=== PATIENT | male | born 1970 | race Caucasian/White ===

== ENCOUNTER 2019-09-29 16:08 | Observation (INO) | payer SELFPAY ==
[~2019-09-29] VITALS: Ht 170 cm; Wt 114.6 kg
[2019-09-29] VITALS (10 sets, daily range): BP systolic 141–191; BP diastolic 78–102
[~2019-09-29 16:08] MED LIST: ASP325T; BNZ40T
[2019-09-29] MEDS ORDERED: morphine INJ 10 MG/ML 1ML (SYR OR VIAL) IV STA (16:24)
[2019-09-29] MEDS ORDERED: meTOprolol 5 MG/5 ML (LOPRESSOR) VIAL IV ONE (16:30)
[2019-09-29 16:37] LABS: BASOPHILS % (AUTO) 1 % (0-10); EOSINOPHILS # (AUTO) 0.1 10^3/uL (0.0-0.3); EOSINOPHILS % (AUTO) 1 % (0-10); HEMATOCRIT 47 % (40-54); HEMOGLOBIN 17.2 G/DL (13.3-17.7); LYMPHOCYTES # (AUTO) 1.9 X 10^3 (1.0-4.0); LYMPHOCYTES % (AUTO) 25 % (12-44); MEAN CORPUSCULAR HEMOGLOBIN 34 PG (25-34); MEAN CORPUSCULAR HGB CONC 37 G/DL (32-36); MEAN CORPUSCULAR VOLUME 93 FL (80-99); MEAN PLATELET VOLUME 10.8 FL (7.4-10.4); MONOCYTES # (AUTO) 0.8 X 10^3 (0.0-1.0); MONOCYTES % (AUTO) 11 % (0-12); NEUTROPHILS # (AUTO) 4.7 X 10^3 (1.8-7.8); NEUTROPHILS % (AUTO) 63 % (42-75); PLATELET COUNT 160 10^3/uL (130-400); RED CELL DISTRIBUTION WIDTH 12.5 % (10.0-14.5); WHITE BLOOD COUNT 7.5 10^3/uL (4.3-11.0)
--- NOTE | 2019-09-29 16:41 | ED Chest Pain ---
General Chief Complaint: Chest Pain Stated Complaint: HIGH BLOOD PRESSURE History of Present Illness Date Seen by Provider: September 29, 2019 Time Seen by Provider: 16:10 Initial Comments 48-year-old male presents for hypertension. He states since approximately 8:30 this morning his blood pressure is been in the 200s over 120s. He takes Benazapril daily for his blood pressure 20 mg he did take a second dose this morning with no change in his blood pressure. He has been checking it every 30 minutes. He has tried to rest but without resolution of symptoms. He did take aspirin 325 mg, 2 tablets this afternoon. He has a history of CAD and had a heart catheterization in 2009, no stents were placed. He did receive nitroglycerin in 2009 and had significant side effects with burning in his head and significant head pressure. He would prefer not to be given nitroglycerin. His hemoglobin A1c has been borderline elevated but he has not been started on a medication for diabetes. He denies any nausea or vomiting. He has been a little more short of air, than normal for him, and noticing pressure in his left chest. No radiation into his arms or neck. He is diaphoretic and SOA after walking to exam room. He has a family history of coronary artery disease. He denies any recent increased stressors in his life. 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 NTG SL CANOE MAKER: No Associated Symptoms: No abdominal pain, No back pain; diaphoresis; No dizziness, No edema, No fatigue, No fever/chills, No headache, No heartburn, No nausea/vomiting, No rash; shortness of breath; No swelling/lump in chest, No syncope, No weakness Allergies and Home Medications Allergies Coded Allergies: nitroglycerin (Verified Adverse Reaction, Severe, 09/29/19) Patient Home Medication List Home Medication List Reviewed: Yes Review of Systems Review of Systems Constitutional: no symptoms reported, see HPI Respiratory: See HPI, SOA With Exertion Cardiovascular: See HPI, Chest Pain, Palpitations (hypertension), Other Gastrointestinal: No Symptoms Reported, See HPI; Denies Nausea, Denies Vomiting Psychiatric/Neurological: Denies No Symptoms Reported, Denies See HPI All Other Systems Reviewed Negative Unless Noted: Yes Past Nudofjg-Guajly-Sxtqbd Hx Past Med/Social Hx: Reviewed Nursing Past Med/Soc Hx Patient Social History Alcohol Use: Regular Use Alcohol Beverage of Choice: Beer Recreational Drug Use: No Smoking Status: Current Everyday Smoker Type Used: Cigarettes (one pack a day) 2nd Hand Smoke Exposure: Yes Recent Foreign Travel: No Contact w/Someone Who Travel: No (N) Recent Hopitalizations: No Seasonal Allergies Seasonal Allergies: Yes Past Medical History Surgeries: No Respiratory: No Cardiac: Yes Angina Neurological: No Reproductive Disorders: No Genitourinary: No Gastrointestinal: No Musculoskeletal: No Endocrine: No HEENT: No Cancer: No Psychosocial: No Blood Disorders: No Physical Exam Vital Signs Vital Signs - First Documented Capillary Refill : Height, Weight, BMI Height: '" Weight: lbs. oz. kg; BMI Method:Stated General Appearance: WD/WN, Mild Distress HEENT: PERRL/EOMI, TMs Normal, Normal ENT Inspection, Pharynx Normal, Moist Mucous Membranes Neck: Full Range of Motion, Normal Inspection, Non Tender, Supple Respiratory: Chest Non Tender, Lungs Clear, Normal Breath Sounds Cardiovascular: Regular Rate, Rhythm, No Edema, No Murmur, Normal Peripheral Pulses Gastrointestinal: Normal Bowel Sounds, Non Tender, Soft Neurologic/Psychiatric: Alert, Oriented x3, No Motor/Sensory Deficits, Normal Mood/Affect Skin: Normal Color, Diaphoresis Progress/Results/Core Measures Results/Orders Lab Results Laboratory Tests Test 09/29/19 16:22 Range/Units White Blood Count 7.5 4.3-11.0 10^3/uL Red Blood Count 5.01 4.35-5.85 10^6/uL Hemoglobin 17.2 13.3-17.7 G/DL Hematocrit 47 40-54 % Mean Corpuscular Volume 93 80-99 FL Mean Corpuscular Hemoglobin 34 25-34 PG Mean Corpuscular Hemoglobin Concent 37 H 32-36 G/DL Red Cell Distribution Width 12.5 10.0-14.5 % Platelet Count 160 130-400 10^3/uL Mean Platelet Volume 10.8 H 7.4-10.4 FL Neutrophils (%) (Auto) 63 42-75 % Lymphocytes (%) (Auto) 25 12-44 % Monocytes (%) (Auto) 11 0-12 % Eosinophils (%) (Auto) 1 0-10 % Basophils (%) (Auto) 1 0-10 % Neutrophils # (Auto) 4.7 1.8-7.8 X 10^3 Lymphocytes # (Auto) 1.9 1.0-4.0 X 10^3 Monocytes # (Auto) 0.8 0.0-1.0 X 10^3 Eosinophils # (Auto) 0.1 0.0-0.3 10^3/uL Basophils # (Auto) 0.0 0.0-0.1 10^3/uL Prothrombin Time 14.0 12.2-14.7 SEC INR Comment 1.0 0.8-1.4 Activated Partial Thromboplast Time 28 24-35 SEC Sodium Level 137 135-145 MMOL/L Potassium Level 3.5 L 3.6-5.0 MMOL/L Chloride Level 102 98-107 MMOL/L Carbon Dioxide Level 21 21-32 MMOL/L Anion Gap 14 5-14 MMOL/L Blood Urea Nitrogen 6 L 7-18 MG/DL Creatinine 0.91 0.60-1.30 MG/DL Estimat Glomerular Filtration Rate > 60 BUN/Creatinine Ratio 7 Glucose Level 171 H 70-105 MG/DL Calcium Level 9.9 8.5-10.1 MG/DL Corrected Calcium 8.5-10.1 MG/DL Magnesium Level 1.5 L 1.6-2.4 MG/DL Total Bilirubin 0.8 0.1-1.0 MG/DL Aspartate Amino Transf (AST/SGOT) 104 H 5-34 U/L Alanine Aminotransferase (ALT/SGPT) 84 H 0-55 U/L Alkaline Phosphatase 105 40-136 U/L Myoglobin 48.2 10.0-92.0 NG/ML Troponin I < 0.028 <0.028 NG/ML B-Type Natriuretic Peptide 30.4 <100.0 PG/ML Total Protein 8.2 6.4-8.2 GM/DL Albumin 4.6 H 3.2-4.5 GM/DL My Orders Orders - ALIE BOOKER Cbc With Automated Diff (09/29/19 16:24) Magnesium (09/29/19 16:24) Chest 1 View, Ap/Pa Only (09/29/19 16:24) Ekg Tracing (09/29/19 16:24) Comprehensive Metabolic Panel (09/29/19 16:24) Myoglobin Serum (09/29/19 16:24) Protime With Inr (09/29/19 16:24) Partial Thromboplastin Time (09/29/19 16:24) O2 (09/29/19 16:24) Monitor-Rhythm Ecg Trace Only (09/29/19 16:24) Ed Iv/Invasive Line Start (09/29/19 16:24) BNP (09/29/19 16:24) Troponin I (09/29/19 16:24) Morphine Injection (Morphine Injection (09/29/19 16:24) Metoprolol Tartrate Injection (Lopressor (09/29/19 16:30) Potassium Chloride (Tablet) (Klor Con Ta (09/29/19 17:29) Medications Given in ED Current Medications Medications Dose Ordered Sig/Mounika Route Start Time Stop Time Status Last Admin Dose Admin Metoprolol Tartrate 5 mg ONCE ONCE IV 09/29/19 16:30 09/29/19 16:31 DC 09/29/19 17:11 5 MG Vital Signs/I&O 09/29/19 09/29/19 09/29/19 16:25 16:25 16:55 Temp 37.0 Pulse 108 98 Resp 16 18 B/P (MAP) 234/122 (159) 183/91 (121) Pulse Ox 98 97 O2 Delivery Room Air Room Air Room Air Progress Progress Note : Time: 16:10 Progress Note Patient seen and evaluated, will obtain EKG, chest x-ray, labs. Will give metoprolol 5 mg IV and morphine 2 mg IV. Continue to monitor. 1700 Blood pressure and pulse down slightly: 160/90s HR 80-90 1730 blood pressure in the 140s/80s HR 70-90. Patient reports left chest p ressure improved. He continues to have no nausea or vomiting. [address] Garza, recommended admission for observation. Orders received. Discussed with patient and he is agreeable. [address] Muir, will be admitted to her agreeable to accept patient. 1845 Patient has remained stable with no further chest pressure. No requests. Initial ECG Impression Date: September 29, 2019 Initial ECG Impression Time: 16:22 Initial ECG Rate: 102 Initial ECG Rhythm: S.Tach Initial ECG Intervals: Normal Initial ECG Intervals VT 170, QRSD 116, QT 348, QTC 454. Ralston P 37, QRS -25, T 124. Initial ECG Impression: Normal Diagnostic Imaging Diagonstic Imaging: Xray Plain Films/CT/US/NM/MRI: chest Comments NAME: MONIKA HERNADEZ [employer] REC#: [id number] PT STATUS: REG ER : 1970 PHYSICIAN: ALIE BOOKER ADMIT DATE: 09/29/19/ER Signed Date of Exam:09/29/19 CHEST 1 VIEW, AP/PA ONLY CHEST 1 VIEW, AP/PA ONLY Indication: Hypertension, history of angina Comparison: None available. Findings: No focal airspace disease in the visualized lungs. Please note that the posterior lower lobes are poorly evaluated by portable radiography. No pleural effusion or pneumothorax. Normal cardiomediastinal silhouette. Impression: 1. No acute cardiopulmonary process by portable radiography. Dictated by: Dictated on workstation # [id number] Dict: 09/29/191653 Trans: 09/29/191655 [facility] [id number] Interpreted by: THAO CRAFT MD Electronically signed by: THAO CRAFT MD 09/29/191655 Reviewed: Reviewed by Me Departure Impression Primary Impression: Hypertension Qualified Codes: I10 - Essential (primary) hypertension Additional Impressions: Chest pressure Tobacco abuse Disposition: ADMITTED INPATIENT Condition: Stable Admissions Decision to Admit Reason: Admit from ER (General) Decision to Admit/Date: September 29, 2019 Time/Decision to Admit Time: 17:30 Departure-Patient Inst. Referrals: JIMMY ARIAS MD (PCP) Primary Care Physician LOGAN GARZA MD Copy Copies To 1: JIMMY ARIAS MD, AMY ARNP September 29, 2019 16:41
[2019-09-29 16:51] LABS: ALBUMIN 4.6 GM/DL (3.2-4.5); CHLORIDE 102 MMOL/L (98-107); POTASSIUM 3.5 MMOL/L (3.6-5.0); SODIUM 137 MMOL/L (135-145)
[2019-09-29 16:52] LABS: CALCIUM 9.9 MG/DL (8.5-10.1)
[2019-09-29 16:53] LABS: GLUCOSE 171 MG/DL (70-105)
[2019-09-29 16:54] LABS: TOTAL PROTEIN 8.2 GM/DL (6.4-8.2)
[2019-09-29 16:55] LABS: BILIRUBIN,TOTAL 0.8 MG/DL (0.1-1.0); CARBON DIOXIDE 21 MMOL/L (21-32)
[2019-09-29 16:57] LABS: ALKALINE PHOSPHATASE 105 U/L (40-136); CREATININE SERUM 0.91 MG/DL (0.60-1.30); GFR ESTIMATED > 60
--- NOTE | 2019-09-29 16:57 | Diagnostic Imaging Report ---
CHEST 1 VIEW, AP/PA ONLY Indication: Hypertension, history of angina Comparison: None available. Findings: No focal airspace disease in the visualized lungs. Please note that the posterior lower lobes are poorly evaluated by portable radiography. No pleural effusion or pneumothorax. Normal cardiomediastinal silhouette. Impression: 1. No acute cardiopulmonary process by portable radiography. Dictated by: Dictated on workstation # [id number]
[2019-09-29 16:58] LABS: BUN/CREATININE RATIO 7
[2019-09-29 17:00] LABS: ALANINE AMINOTRANSFERASE 84 U/L (0-55); MAGNESIUM 1.5 MG/DL (1.6-2.4)
[2019-09-29] MEDS ORDERED: KCL 10 MEQ TAB (MICRO K) PO STA (17:29)
--- OUTSIDE RECORDS SUMMARY | 2019-09-29 18:08 | XMS REPORT ---
Author Author Varun ENGLAND Organization [facility] Address Unknown Care Team Providers Care Merchandising Team Lead Name Role Phone SAMANTA RACHEAL Unavailable PROBLEMS Type Condition ICD9-CM Code FBF81-LW Code Onset Dates Condition S tatus SNOMED Code Problem Abdominal pain R10.9 Active 81678 001 Problem HTN (hypertension) I10 Active 3 7210721 Problem Alcohol abuse F10.10 Active 952955 05 Problem Urinary frequency R35.0 Active 16 2925885 ALLERGIES No Known Allergies ENCOUNTERS Encounter Location Date Diagnosis [facility] [address] [facility] [facility] [id number] [place], [place] [id number] Feb, Dental examination Z01.20 [facility] [address] [facility] [id number] [address] [place] [address] Jun, Urinary frequency R35.0 ; Ab dominal pain R10.9 ; HTN (hypertension) I10 and Alcohol abuse F10.10 IMMUNIZATIONS No Known Immunizations SOCIAL HISTORY Never Assessed REASON FOR VISIT ELLA PLAN OF CARE Activity Details Follow Up prn Reason:O&R VITAL SIGNS Height 67 in 2017-02-21 Blood pressure systolic 172 mmHg 2017-02-21 Blood pressure diastolic 96 mmHg 2017-02-21 MEDICATIONS Medication Instructions Dosage Frequency Start Date End Date Duration S tatus Enalapril Maleate 40 mg Orally Once a day 1 tablet 24h Active RESULTS No Results PROCEDURES Procedure Date Ordered Result Body Site LTD ORAL EVALUATION - PROBLEM FOCUS Feb 21, 2017 INTRAORL-PERIAPICAL 1 FILM [id number] Feb 21, 2017 BITEWING - SINGLE FILM Feb 21, 2017 INSTRUCTIONS MEDICATIONS ADMINISTERED No Known Medications MEDICAL (GENERAL) HISTORY Type Description Date Surgical History heart cath Surgical History Nose and throat surgery
--- OUTSIDE RECORDS SUMMARY | 2019-09-29 18:08 | XMS REPORT | Continuity of Care Document ---
Demographics Preferred Language Unknown Marital Status Unknown Alevism Affiliation Unknown Race Unknown Ethnic Group Unknown Author Organization Unknown Address Unknown Phone Unavailable Allergies There is no data. Medications There is no data. Problems There is no data. Procedures There is no data. Results Test Result Range Complete blood count (CBC) with automate d white blood cell (WBC) differential - 09/29/19 16:22 Blood leukocytes automated count (number/volume) 7.5 10*3/uL 4.3-11.0 Blood erythrocytes automated count (number/volume) 5.01 10*6/uL 4.35-5.85 Venous blood hemoglobin measurement (mass/volume) 17.2 g/dL 13.3-17.7 Blood hematocrit (volume fraction) 47 % 40-54 Automated erythrocyte mean corpuscular volume 93 [ foz_us] 80-99 Automated erythrocyte mean corpuscular h emoglobin (mass per erythrocyte) 34 pg 25-34 Automated erythrocyte mean corpuscular h emoglobin concentration measurement (mass/volume) 37 g/dL 32-36 Automated erythrocyte distribution width ratio 12. 5 % 10.0- 14.5 Automated blood platelet count (count/volume) 160 10*3/uL 130-400 Automated blood platelet mean volume measurement 10.8 [foz_us] 7.4-10.4 Automated blood neutrophils/100 leukocytes 63 % 42-75 Automated blood lymphocytes/100 leukocytes 25 % 12-44 Blood monocytes/100 leukocytes 11 % 0-12 Automated blood eosinophils/100 leukocytes 1 % 0-10 Automated blood basophils/100 leukocytes 1 % 0-10 Blood neutrophils automated count (number/volume) 4.7 10*3 1.8-7.8 Blood lymphocytes automated count (number/volume) 1.9 10*3 1.0-4.0 Blood monocytes automated count (number/volume) 0. 8 10*3 0.0-1.0 Automated eosinophil count 0.1 10*3/uL 0 .0-0.3 Automated blood basophil count (count/volume) 0.0 10*3/uL 0.0-0.1 Comprehensive metabolic panel - 09/29/19 16:22 Serum or plasma sodium measurement (moles/volume) 137 mmol/L 135-145 Serum or plasma potassium measurement (moles/volume) 3.5 mmol/L 3.6-5.0 Serum or plasma chloride measurement (moles/volume) 102 mmol/L 98-107 Carbon dioxide 21 mmol/L 21-32 Serum or plasma anion gap determination (moles/volume) 14 mmol/L 5-14 Serum or plasma urea nitrogen measurement (mass/volume ) 6 mg/dL 7-18 Serum or plasma creatinine measurement (mass/volume) 0.91 mg/dL 0.60-1.30 Serum or plasma urea nitrogen/creatinine mass ratio 7 NRG Serum or plasma creatinine measurement w ith calculation of estimated glomerular filtration rate > NRG Serum or plasma glucose measurement (mass/volume) 171 mg/dL 70-105 Serum or plasma calcium measurement (mass/volume) 9.9 mg/dL 8.5-10.1 Serum or plasma total bilirubin measurement (mass/volu me) 0.8 mg/dL 0.1-1.0 Serum or plasma alkaline phosphatase elana surement (enzymatic activity/volume) 105 U/L 40-136 Serum or plasma aspartate aminotransfera se measurement (enzymatic activity/volume) 104 U/L 5-34 Serum or plasma alanine aminotransferase measurement (enzymatic activity/volume) 84 U/L 0-55 Serum or plasma protein measurement (mass/volume) 8.2 g/dL 6.4-8.2 Serum or plasma albumin measurement (mass/volume) 4.6 g/dL 3.2-4.5 Magnesium - 09/29/19 16:22 Magnesium 1.5 mg/dL 1.6-2.4 PT panel in platelet poor plasma by coag ulation assay - 09/29/19 16:22 Prothrombin time (PT) in platelet poor plasma by coagu lation assay 14.0 s 12.2-14.7 INR in platelet poor plasma or blood by coagulation as say 1.0 0.8-1.4 Activated partial thromboplastin time (a PTT) in platelet poor plasma bycoagulation assay - 09/29/19 16:22 Activated partial thromboplastin time (a PTT) in platelet poor plasma bycoagulation assay 28 s 24-35 Myoglobin, serum - 09/29/19 16:22 Myoglobin, serum 48.2 ng/mL 10.0-92.0 Serum or plasma troponin i.cardiac measu rement (mass/volume) - 09/29/19 16:22 Serum or plasma troponin i.cardiac measurement (mass/v olume) < ng/mL <0.028 Serum or plasma lithium measurement (mol es/volume) - 09/29/19 16:22 BNP PT 30.4 pg/mL <100.0 Encounters ACCT No. Visit Date/Time Discharge Status Pt. Type Provider Facility Loc./Unit Complaint [id number] 09/29/2019 16:39:00 Document Registration
[2019-09-29] MEDS ORDERED: morphine INJ 4 MG/ML 1 ML (VIAL/SYRINGE) IV PRN (19:15)
[2019-09-29] MEDS ORDERED: ONDANSETRON 4 MG/2 ML (SDV) Z0FRAN IV PRN (19:15)
[2019-09-29] MEDS ORDERED: CATHETER FLUSH 10 ML SYR IV PRN (19:15)
--- OUTSIDE RECORDS SUMMARY | 2019-09-29 19:19 | XMS REPORT | Continuity of Care Document ---
Author Organization Unknown Address Unknown Phone Unavailable Allergies Active Description Code Type Severity Reaction Onset Reported/Identified Relationship to Patient Clinical Status Yes No Known Drug Allergies [id number] Drug Allergy Unknown N/A 07/13/2009 Yes nitroglycerin [id number] Chele g Allergy Severe N/A 09/29/2019 Medications There is no data. Problems There [...] Status Pt. Type Provider Facility Loc./Unit Complaint [id number] 09/29/2019 18:00:[address] Inpatient MEHREEN SALDANA, GWENDOLYN Aviles [facility] ICU CHEST PAIN, HTN
[2019-09-29] MEDS: NICOTINE 21 MG (NICODERM) PATCH TD SCH (20:16)
[2019-09-29] MEDS: CATHETER FLUSH 10 ML SYR IV SCH (20:17)
[2019-09-30] VITALS (10 sets, daily range): BP systolic 135–182; BP diastolic 77–97
[2019-09-30 03:39] LABS: BASOPHILS % (AUTO) 1 % (0-10); EOSINOPHILS # (AUTO) 0.2 10^3/uL (0.0-0.3); EOSINOPHILS % (AUTO) 3 % (0-10); HEMATOCRIT 43 % (40-54); HEMOGLOBIN 15.5 G/DL (13.3-17.7); LYMPHOCYTES % (AUTO) 30 % (12-44); MEAN CORPUSCULAR HEMOGLOBIN 34 PG (25-34); MEAN CORPUSCULAR HGB CONC 36 G/DL (32-36); MEAN CORPUSCULAR VOLUME 95 FL (80-99); MEAN PLATELET VOLUME 10.9 FL (7.4-10.4); MONOCYTES # (AUTO) 0.7 X 10^3 (0.0-1.0); MONOCYTES % (AUTO) 10 % (0-12); NEUTROPHILS # (AUTO) 3.8 X 10^3 (1.8-7.8); NEUTROPHILS % (AUTO) 57 % (42-75); PLATELET COUNT 140 10^3/uL (130-400); RED CELL DISTRIBUTION WIDTH 12.5 % (10.0-14.5); WHITE BLOOD COUNT 6.7 10^3/uL (4.3-11.0)
[2019-09-30 04:09] LABS: ALANINE AMINOTRANSFERASE 64 U/L (0-55); ALKALINE PHOSPHATASE 83 U/L (40-136); BILIRUBIN,TOTAL 1.1 MG/DL (0.1-1.0); BUN/CREATININE RATIO 8; CALCIUM 9.4 MG/DL (8.5-10.1); CARBON DIOXIDE 20 MMOL/L (21-32); CHLORIDE 104 MMOL/L (98-107); CREATININE SERUM 0.85 MG/DL (0.60-1.30); GFR ESTIMATED > 60; GLUCOSE 136 MG/DL (70-105); POTASSIUM 3.6 MMOL/L (3.6-5.0); SODIUM 139 MMOL/L (135-145); TOTAL PROTEIN 7.2 GM/DL (6.4-8.2)
[2019-09-30] MEDS: CATHETER FLUSH 10 ML SYR IV SCH (06:10)
[2019-09-30] MEDS ORDERED: lisINopril 20 MG (PRINIVIL) TABLET PO NR (07:45)
[2019-09-30] MEDS: NICOTINE 21 MG (NICODERM) PATCH TD SCH (07:47)
[2019-09-30] MEDS ORDERED: MONT10TA26 PO (07:53)
[2019-09-30] MEDS ORDERED: LORA10TA72 PO (07:53)
[2019-09-30] MEDS ORDERED: BETA15CR14 TOP (07:53)
[2019-09-30] MEDS ORDERED: BENA40TA5 PO (07:53)
--- NOTE | 2019-09-30 08:37 | Consultation-Cardiology ---
HPI-Cardiology Cardiology Consultation Date of Consultation 09/30/19 Date of Admission Time Seen by Provider: 08:34 Indication: chest pain, hypertension HPI 48 years old gentleman with history of hypertension, was feeling tired and had no energy, noted that his blood pressure is over 200. Came into the emergency room and had difficulty with controlling his blood pressure yesterday. Reports some discomfort in the chest. No significant chest pain. Denied any shortness of breath, no syncope but felt tired and had no energy. No fever or chills. Home Medications & Allergies Allergies: Coded Allergies: nitroglycerin (Verified Adverse Reaction, Severe, 09/29/19) Home Medication List Reviewed: Yes PZH-Ceggeq-Icbirq Hx Patient Social History Marital Status: Employed/Student: employed Alcohol Use: Regular Use Recreational Drug Use: No Smoking Status: Current Everyday Smoker Type Used: Cigarettes (one pack a day) 2nd Hand Smoke Exposure: Yes Recent Foreign Travel: No Recent Infectious Disease Expo: No Recent Hopitalizations: No Past Medical History Discussed below Family Medical History Family History: Cardiovascular disease 19 FATHER, Onset:Unknown Hypertension 19 MOTHER, Onset:Unknown Review of Systems-General Review of Systems Constitutional: see HPI, malaise, weakness EENTM: see HPI, no symptoms reported Respiratory: see HPI; No cough, No dyspnea on exertion, No hemoptysis, No orthopnea, No phlegm, No short of breath, No stridor, No wheezing, No other Cardiovascular: see HPI, chest pain; No edema, No Hx of Intervention, No palpitations, No syncope, No vascular heart diseas, No other Gastrointestinal: no symptoms reported, see HPI Genitourinary: no symptoms reported, see HPI Musculoskeletal: no symptoms reported, see HPI Skin: no symptoms reported, see HPI Psychiatric/Neurological: Denies No Symptoms Reported; See HPI All Other Systems Reviewed Negative Unless Noted: Yes Reviewed Test Results Reviewed Test Results Lab Laboratory Tests Test 09/29/19 16:22 09/29/19 21:35 09/30/19 03:02 Range/Units White Blood Count 7.5 6.7 4.3-11.0 10^3/uL Red Blood Count 5.01 4.59 4.35-5.85 10^6/uL Hemoglobin 17.2 15.5 13.3-17.7 G/DL Hematocrit 47 43 40-54 % Mean Corpuscular Volume 93 95 80-99 FL Mean Corpuscular Hemoglobin 34 34 25-34 PG Mean Corpuscular Hemoglobin Concent 37 H 36 32-36 G/DL Red Cell Distribution Width 12.5 12.5 10.0-14.5 % Platelet Count 160 140 130-400 10^3/uL Mean Platelet Volume 10.8 H 10.9 H 7.4-10.4 FL Neutrophils (%) (Auto) 63 57 42-75 % Lymphocytes (%) (Auto) 25 30 12-44 % Monocytes (%) (Auto) 11 10 0-12 % Eosinophils (%) (Auto) 1 3 0-10 % Basophils (%) (Auto) 1 1 0-10 % Neutrophils # (Auto) 4.7 3.8 1.8-7.8 X 10^3 Lymphocytes # (Auto) 1.9 2.0 1.0-4.0 X 10^3 Monocytes # (Auto) 0.8 0.7 0.0-1.0 X 10^3 Eosinophils # (Auto) 0.1 0.2 0.0-0.3 10^3/uL Basophils # (Auto) 0.0 0.0 0.0-0.1 10^3/uL Prothrombin Time 14.0 12.2-14.7 SEC INR Comment 1.0 0.8-1.4 Activated Partial Thromboplast Time 28 24-35 SEC Sodium Level 137 139 135-145 MMOL/L Potassium Level 3.5 L 3.6 3.6-5.0 MMOL/L Chloride Level 102 104 98-107 MMOL/L Carbon Dioxide Level 21 20 L 21-32 MMOL/L Anion Gap 14 15 H 5-14 MMOL/L Blood Urea Nitrogen 6 L 7 7-18 MG/DL Creatinine 0.91 0.85 0.60-1.30 MG/DL Estimat Glomerular Filtration Rate > 60 > 60 BUN/Creatinine Ratio 7 8 Glucose Level 171 H 136 H 70-105 MG/DL Calcium Level 9.9 9.4 8.5-10.1 MG/DL Corrected Calcium 9.4 8.5-10.1 MG/DL Magnesium Level 1.5 L 1.6-2.4 MG/DL Total Bilirubin 0.8 1.1 H 0.1-1.0 MG/DL Aspartate Amino Transf (AST/SGOT) 104 H 70 H 5-34 U/L Alanine Aminotransferase (ALT/SGPT) 84 H 64 H 0-55 U/L Alkaline Phosphatase 105 83 40-136 U/L Myoglobin 48.2 10.0-92.0 NG/ML Troponin I < 0.028 0.042 H < 0.028 <0.028 NG/ML B-Type Natriuretic Peptide 30.4 <100.0 PG/ML Total Protein 8.2 7.2 6.4-8.2 GM/DL Albumin 4.6 H 4.0 3.2-4.5 GM/DL Physical Exam Physical Exam Vital Signs Vital Signs - First Documented Capillary Refill : Less Than 3 Seconds Height, Weight, BMI Height: '" Weight: lbs. oz. kg; 39.86 BMI Method:Stated General Appearance: WD/WN, Mild Distress HEENT: PERRL/EOMI, TMs Normal, Normal ENT Inspection, Pharynx Normal, Moist Mucous Membranes Neck: Full Range of Motion, Normal Inspection, Non Tender, Supple Respiratory: Chest Non Tender, Lungs Clear, Normal Breath Sounds Cardiovascular: Regular Rate, Rhythm, No Edema, No Murmur, Normal Peripheral Pulses Gastrointestinal: Normal Bowel Sounds, Non Tender, Soft Neurologic/Psychiatric: Alert, Oriented x3, No Motor/Sensory Deficits, Normal Mood/Affect Skin: Normal Color, Diaphoresis A/P-Cardiology Admission Diagnosis Chest pain Coronary artery disease Hypertensive emergency Diabetes mellitus Assessment/Plan Chest pain, nonspecific etiology, atypical in presentation, probably secondary to severe hypertension, had one mild elevation in troponin out of 3 inches probably a lab error. Currently chest pain-free, I will evaluate echo, recommended stress test to be done as an outpatient in the future. History of cardiac catheterization done in 2009 showing mild coronary artery disease, nonobstructive disease Hypertensive emergency, blood pressure is better controlled today. I will resume benazepril and started him on Toprol-XL 25 mg daily and will evaluate 2-D echocardiogram Questionable hyperlipidemia I will evaluate lipid profile. Diabetes mellitus, reported that he was prediabetic. I will defer to the medical service for management COPD, using BiPAP as an outpatient. Managed by primary care team Tobaccoism, educated on smoking cessation BMI 39, discussed weight loss Strong family history of heart disease with multiple family members with heart disease Clinical Quality Measures AMI/AHF: ASA po Prior to arrival: Yes DVT/VTE Risk/Contraindication: Risk Factor Score Per Nursin RFS Level Per Nursing on Admit: 3=High LOGAN KAY MD September 30, 2019 08:37
[2019-09-30] MEDS ORDERED: MTP25TSR PO (08:43)
--- NOTE | 2019-09-30 08:49 | Discharge Inst-Simple/Standard ---
Discharge Inst-Standard Patient Instructions/Follow Up Plan of Care/Instructions/FU: Please continue to take your medications as written. Please follow up with Dr Russ and Dr Garza as scheduled. Activity as Tolerated: Yes Discharge Diet: Cardiac Diet Return to The Hospital For: Chest pain, shortness of breath, fever, confusion, elevated blood pressure, if you feel you are getting worse. GWENDOLYN VERDE MD September 30, 2019 08:49
--- NOTE | 2019-09-30 08:51 | Short Stay Summary-Hospitalist ---
History of Present Illness HPI/Chief Complaint Pt is a 48yoCM with a PMH of HTN, NIDDMII, CAD, and tobacco abuse who presented to the ER due to elevated blood pressure. He states he checked his BP with a wrist cuff and it was well over 200 systolically. He states he doubled his dose of Benazapril without any improvement. He then called his mom who is a nurse and had her check his BP and it was still very elevated and she advised him to seek care in the ER. His BP yesterday in the Er was 234/122. He was also reporting some shortness of breath and chest pressure when in the ER. Decision was made to admit for hypertension and ACS rule out. This morning he states he feels well and has no complaints. Symptoms have resolved completely and BP is under much better control. He is requesting DC home. Source: patient Date Seen 09/30/19 Time Seen by a Provider: 08:50 Attending Physician Gwendolyn Verde MD PCP Donny Russ MD Referring Physician Date of Admission September 29, 2019 at 18:00 Home Medications & Allergies Home Medications Reviewed patient Home Medication Reconciliation performed by pharmacy medication reconciliations quality technician fiberglass and/or nursing. Patients Allergies have been reviewed. Allergies Allergies Coded Allergies nitroglycerin (Verified Adverse Reaction, Severe, 09/29/19) Past Hgeebhj-Illeni-Stbgqc Hx Past Med/Social Hx: Reviewed Nursing Past Med/Soc Hx Patient Social History Marrital Status: Employed/Student: employed Alcohol Use: Regular Use Alcohol Beverage of Choice: Beer Recreational Drug Use: No Smoking Status: Current Everyday Smoker Type Used: Cigarettes (one pack a day) 2nd Hand Smoke Exposure: Yes Recent Foreign Travel: No Contact w/other who traveled: No Recent Hopitalizations: No Recent Infectious Disease Expo: No Seasonal Allergies Seasonal Allergies: Yes Past Medical History Cardiac: Angina Reproductive: No History of Blood Disorders: No Family History Reviewed Nursing Family Hx Cardiovascular disease 19 FATHER, Onset:Unknown Hypertension 19 MOTHER, Onset:Unknown Review of Systems Constitutional: No chills, No fever EENTM: no symptoms reported Respiratory: dyspnea on exertion, short of breath Cardiovascular: see HPI, Hx of Intervention Gastrointestinal: no symptoms reported Genitourinary: no symptoms reported Musculoskeletal: no symptoms reported Skin: no symptoms reported Psychiatric/Neurological: No Symptoms Reported Physical Exam Physical Exam Vital Signs Vital Signs - First Documented Capillary Refill : Less Than 3 Seconds Height, Weight, BMI Height: '" Weight: lbs. oz. kg; 39.86 BMI Method:Stated General Appearance: No Apparent Distress, WD/WN, Obese HEENT: PERRL/EOMI, Moist Mucous Membranes; No Scleral Icterus (L), No Scleral Icterus (R) Neck: Normal Inspection, Supple; No Thyromegaly Respiratory: Lungs Clear, No Accessory Muscle Use, No Respiratory Distress Cardiovascular: Regular Rate, Rhythm, No Edema, No Murmur, Normal Peripheral Pulses Gastrointestinal: Normal Bowel Sounds, Non Tender, Soft Extremity: No Calf Tenderness, No Pedal Edema Neurologic/Psychiatric: Alert, Oriented x3, Normal Mood/Affect; No Aphasia, No Facial Droop Skin: Normal Color, Warm/Dry Results Results/Procedures Labs Laboratory Tests 09/29/19 16:22 09/30/19 03:02 Patient resulted labs reviewed. Imaging: Reviewed Imaging Report Imaging Date of Exam:09/29/19 CHEST 1 VIEW, AP/PA ONLY CHEST 1 VIEW, AP/PA ONLY Indication: Hypertension, history of angina Comparison: None available. Findings: No focal airspace disease in the visualized lungs. Please note that the posterior lower lobes are poorly evaluated by portable radiography. No pleural effusion or pneumothorax. Normal cardiomediastinal silhouette. Impression: 1. No acute cardiopulmonary process by portable radiography. Short Stay Diagnosis Discharge Diagnosis-Short Stay Admission Diagnosis Hypertensive Emergency Final Discharge Diagnosis Hypertensive Emergency Conclusion Plan Hypertensive Emergency Very elevated BP with chest pain Has now resolved Cardiology consulted, appreciate recs One mild troponin elevation over night but now resolved- cardiology thinks to be lab error Will need outpatient stress test Echo with preserved EF Can DC home with outpatient follow up with PCP and Dr Garza Diagnosis/Problems Diagnosis/Problems (1) Hypertensive emergency Status: Acute (2) Adult BMI 39.0-39.9 kg/sq m Status: Chronic (3) Tobacco abuse Status: Chronic (4) CAD (coronary artery disease) Qualifiers: Qualified Codes: I25.10 - Atherosclerotic heart disease of [place] coronary artery without angina pectoris Clinical Quality Measures AMI/AHF: ASA po Prior to arrival: Yes DVT/VTE Risk/Contraindication: Risk Factor Score Per Nursin RFS Level Per Nursing on Admit: 3=High GWENDOLYN VERDE MD September 30, 2019 08:51
[2019-09-30 08:57] LABS: CHOLESTEROL 223 MG/DL (< 200); HDL CHOLESTEROL 42 MG/DL (40-60); TRIGLYCERIDES 409 MG/DL (<150)
--- NOTE | 2019-09-30 10:23 | NUR ---
THE DISCHARGE WAS STARTED BEFORE I HAD A CHANCE TO SPEAK WITH THE PT- I DID GO THRU THE EXT MED HISTORY AND THERE WERE NO NOTABLE DIFFERENCE THAT NEEDED CHANGED.
--- NOTE | 2019-09-30 12:20 | NUR ---
MONIKA HERNADEZ demonstrates understanding of discharge instructions and accurately returns instructions upon questioning. Copy of Post-Discharge Instructions and Medication Discharge Instructions given to pt. MONIKA HERNADEZ is able to manage continuing needs after discharge. Patients belongings returned to pt. Skin dry and intact; no breakdown noted. Patient discharged from [facility] on 09/30/19 at 1220. MONIKA HERNADEZ left floor via ambulation, accompanied by staff.
== END 2019-09-30 12:20 | disposition home or self-care (01) ==
LOC: EDUNIT# 16:08 → ER 16:10 → ICU 18:00
PROVIDERS: ADMIT Family Medicine; ATTEND Family Medicine
DX: I16.1 Hypertensive emergency (principal); I25.119 Atherosclerotic heart disease of native coronary artery with unspecified angina pectoris; J44.9 Chronic obstructive pulmonary disease, unspecified; E11.9 Type 2 diabetes mellitus without complications; E66.9 Obesity, unspecified; F17.210 Nicotine dependence, cigarettes, uncomplicated; Z68.39 Body mass index [BMI] 39.0-39.9, adult; Z88.8 Allergy status to other drugs, medicaments and biological substances
CPT/HCPCS: 36415; 71045; 80053; 80061; 83735; 83874; 83880; 84484; 85025; 85610; 85730; 93005; 93306; 96374; 96375